=== PATIENT | male | born 1950 | race Caucasian/White ===

== ENCOUNTER 2020-06-21 13:06 | Inpatient (IN) | payer OTHER ==
[~2020-06-21] VITALS: Ht 172.7 cm; Wt 80.3 kg
[2020-06-21 13:08] VITALS: BP 132/79
[2020-06-21] MEDS ORDERED: TIZANIDINE HCL2 M1 PO (13:14)
[2020-06-21] MEDS ORDERED: LYRICA25 MG PO (13:15)
[2020-06-21] MEDS ORDERED: SEROQUEL 100 M100 M1 PO (13:16)
[2020-06-21] MEDS ORDERED: DESYREL150 MG PO (13:17)
[2020-06-21] MEDS ORDERED: CLONAZEPAM 0.50.5 M1 PO (13:25)
[2020-06-21] MEDS ORDERED: LEVO-T100 MCG PO (13:26)
[2020-06-21] MEDS ORDERED: NEURONTIN100 MG PO (13:26)
[2020-06-21] MEDS ORDERED: MELOXICAM7.5 MG PO (13:27)
[2020-06-21] MEDS ORDERED: TRAMADOL 50 MG50 MG PO (13:28)
[2020-06-21 18:09] LABS: URINE BILIRUBIN NEGATIVE (Negative); URINE BLOOD NEGATIVE (Negative); URINE CLARITY CLEAR; URINE COLOR YELLOW; URINE GLUCOSE-RANDOM* NEGATIVE (Negative); URINE KETONES NEGATIVE (Negative); URINE LEUKOCYTES-REFLEX NEGATIVE (Negative); URINE NITRITE-REFLEX NEGATIVE (Negative); URINE PROTEIN (DIPSTICK) NEGATIVE (Negative); URINE SPECIFIC GRAVITY <= 1.005 (1.005-1.035); URINE UROBILINOGEN 0.2 E.U./dl (0.2-1.0)
--- NOTE | 2020-06-21 20:30 | NUR ---
NOTIFIED OF PT'S POSITIVE COVID PCR. PT STATES HE WAS ILL WITH "COLD" SYMPTOMS IN , BUT HAS FELT FINE SINCE. NOTIFIED DR. HANDY WHO IS AGREEABLE TO CONSULTING ON THE PATIENT A MEDICAL ADMIT. Amanda ALVAREZ AGREEABLE WELL.
[2020-06-21] MEDS ORDERED: KLONOPIN1 MG PO (23:07)
[2020-06-21] MEDS ORDERED: CYTOMEL 5MCG TA5 MCG PO (23:08)
[2020-06-21] MEDS ORDERED: AMITRIPTYLINE H50 M3 PO (23:09)
--- NOTE | 2020-06-22 10:50 | NUR ---
69-year-old male with a history of major depressive disorder, anxiety, hypothyroidism, and suicidal ideation who presents to the ED for evaluation before admission to [facility]. The pt comes from [facility] and is accepted here pending a COVID test. Pt is suicidal with intention and a plan to cut his wrist and throat. OF NOTE: Patient admits to taking his hunting knife to bed to [facility] but after taking his medication for insomnia fell asleep. COVID 19 PCR POSITIVE 06-21-20 at 1454 in [facility] ED. Of NOTE per [facility] team prior to admit [facility] did provide a Negative PCR test. The patient has been admitted with: Suicidal Ideation with a plan to cut throat and wrist with a hunting knife, Hx of Major Depressive Disorder and Anxiety, COVID POSITIVE PER PCR (asymptomatic and continued isolation), Hypothyroidism - pending TSH level and Insomnia. As of 06-22-20 the patient is to be admitted to a medical unit under the care of psychiatry under Dr. Giraldo who confirmed this on 06-22-20. Have spoken with dredge operator supervisor; Carmencita after speaking with attending at present in the ED Dr. Recinos who will discharge patient to Dr. Giraldo's service. [facility] Case Management staff to follow for discharge needs.
[2020-06-22 16:22] VITALS: BP 122/76
[2020-06-22] MEDS ORDERED: MELOXICAM15 MG PO (16:27)
[2020-06-22] MEDS ORDERED: AMITRIPTYLINE H50 M2 PO (16:27)
--- NOTE | 2020-06-22 18:33 | NUR ---
patient admit to unit from er at 1730 with sister. will move patient to 349 later. a/o x4 tearful. sister is inside room.
[2020-06-22 19:43] VITALS: BP 133/76
[2020-06-22 21:09] VITALS: BP 140/82
[2020-06-22 22:02] LABS: HEMATOCRIT 48.4 % (42.0-52.0); HEMOGLOBIN 16.8 gm/dL (14.0-18.0); MCHC 34.7 g/dL (28.0-37.0); MCV 95.1 fL (80.0-100.0); RBC 5.09 mil/uL (4.50-6.00); RDW 12.9 % (10.5-14.5)
[2020-06-22 22:07] LABS: CALCIUM 9.9 mg/dL (8.5-10.1); CREATININE 1.3 mg/dL (0.7-1.3); POTASSIUM 3.9 mmol/L (3.5-5.1)
== END 2020-06-22 22:30 | DRG 178 ==
LOC: ER 13:06 → EROBS 21:57 → 3W 06-22 17:22
PROVIDERS: Emergency Medicine; ADMIT Internal Medicine; ATTEND Internal Medicine
DX: U07.1 COVID-19 (principal); R45.851 Suicidal ideations; F33.2 Major depressive disorder, recurrent severe without psychotic features; E03.9 Hypothyroidism, unspecified; F41.9 Anxiety disorder, unspecified; G47.00 Insomnia, unspecified; Z79.899 Other long term (current) drug therapy

== ENCOUNTER 2020-06-21 14:21 | Inpatient (IN) | payer OTHER ==
[~2020-06-21] VITALS: Ht 175.3 cm; Wt 81.2 kg
[~2020-06-21 14:21] MED LIST: CLONAZEPAM 0.50.5 M1 PO; DESYREL150 MG PO; LEVO-T100 MCG PO; LYRICA25 MG PO; MELOXICAM7.5 MG PO; NEURONTIN100 MG PO; SEROQUEL 100 M100 M1 PO; TIZANIDINE HCL2 M1 PO; TRAMADOL 50 MG50 MG PO
[2020-06-21] MEDS ORDERED: KLONOPIN1 MG PO (23:07)
[2020-06-21] MEDS ORDERED: CYTOMEL 5MCG TA5 MCG PO (23:08)
[2020-06-21] MEDS ORDERED: AMITRIPTYLINE H50 M3 PO (23:09)
[2020-06-22] MEDS ORDERED: MELOXICAM15 MG PO (16:27)
[2020-06-22] MEDS ORDERED: AMITRIPTYLINE H50 M2 PO (16:27)
--- NOTE | 2020-06-23 05:12 | NUR ---
Pt admitted to unit from ED on 06/22/20 @ 2140. Report received from MEIR Villar, prior to coming to unit. Pt arrived to unit via w/c with staff. Pt belongs inventoried. Pt assessment completed. Pt vital signs at time of admission to unit was 140/83; 60; 22; 97.8; and 100% on room air. Pt reports he has chronic pain in lower back and that it is nerve pain which results in bilateral pain to his feet at times. Pt is A&O x 4. Pt is pleasant and cooperative. Pt reports to this fiction writer that he called his adopted son who lives with him and has aspergers and other medical conditions to bring him to hospital r/t his current depressive episode. Pt reports this has happened over the years a total of 5 times. Pt then became tearful and was crying stating he can't take care/fix his son's medical needs. Pt also talks about his daughter and states he has one other adopted son. Pt reports to this fiction writer that today he had a BM in which he had blood. Pt reports it might be internal hemmrhoids, he is not sure. Pt requesting for a high fiber diet and states he needs prune juice daily and he likes to eat fresh raw vegetables. Order received with admission orders for high fiber diet. Pt is ambulatory with steady gait. Pt takes medications whole with water. Pt has been resting quietly throughout night once he was settled into room. Pt is on 12 min rounding for safety. Will continue to monitor for any changes in mood/behavior and safety. Pt rating depression and anxiety 7-8/10. Pt denies SI at this time to this fiction writer. Will continue to monoitor.
[2020-06-23 08:47] VITALS: BP 129/70
[2020-06-23 09:37] VITALS: BP 129/70
--- NOTE | 2020-06-23 11:16 | NUR ---
1118 RESUMMED CARE FROM OVERNIGHT SHIFT THIS AM, PATIENT IN ROOM LYING QUIET. PATIENT ATE BREAKFAST AND TOOK MEDICATION WITHOUT INCIDENCE PATIENT ALERT OX4. PATIENT DENIES SI/HI/AH/VH AT PRESENT PATIENT STATES HE HAS DEPRESSION AT A 6 AND NOW ANXIETY. 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 PATIENTS ABDOMEN SOFT ROUND BOWEL SOUNDS PRESENT LUNGS CLEAR. PATIENT INTERACTIVE WITH STAFF PARTICIPATES IN GROUPS. WILL CONTINUE TO MONITOR PATIENT FOR SAFETY AND BEHAVIORS.
--- NOTE | 2020-06-23 13:19 | NUR ---
Nutrition Note: RD received consult for assessment. Pt reporting a decreased appetite, however continues to eat because he knows he needs to. Pt dislikes food at facility and previous facility. States he normally follows a healthy, high fiber diet at home. Pt 155# per reported wt on admit, now up to 179# at present. Ate 100% of breakfast this am, 50% of lunch. Dislikes hospital supplements, calls ensure the liquid. Typically takes multiple herbal supplements at home. 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 Pt remains low nutritional risk at present. RD will remain available.
--- NOTE | 2020-06-23 16:47 | NUR ---
JA was able to complete the assessment with the Pt. Pt reported SI but stated he did not have a plan. Pt stated, "I ask God to take me because I can't get enough courage to do it". Pt stated several times during the assessment that he had a lot of pain in his back and head. Pt reported chronic pain. Pt also reported he did not have a PCP and was not in a pain clinic. Pt reported seeing his psychiatrist, Dr. Prieto, via telemedicine two weeks ago. Pt does not have a therapist at this time. Pt reported increased anxiety during the assessment stating " I can't organize my thoughts, I have a lot of mental confusion". Pt left the interview stating he was feeling overwhelemed. AJ will continue to follow
[2020-06-23 19:44] VITALS: BP 156/88
--- NOTE | 2020-06-24 05:14 | NUR ---
Assumed care of pt @ 1900. Pt calm et cooperative most of shift. Took medications whole without difficulty. Ambulates the halls ad dimitris with steady gait. VSWNL. Health assessment with no abnormalties noted this shift. Denies SI/HI/AVH at present time. Pt came to desk to report that he was having a "panic attack" but pt did not visually demonstrate ay acute emotional distress et was told that he needed to lie down et concentrate on his breathing et calming himself. Pt requested et received PRN Tramadol et Ambien with HS medications. Currently resting in bed with eyes closed. Will continue to monitor per unit protocol.
[2020-06-24 08:59] VITALS: BP 144/84
[2020-06-24 09:27] VITALS: BP 144/84
--- NOTE | 2020-06-24 12:40 | NUR ---
1230 RESUMMED CARE FROM OVERNIGHT SHIFT THIS AM, PATIENT IN ROOM LYING QUIETLY. PATIENT CAME IN DAY ROOM ATE BREAKFAST TOOK MEDICATION WITHOUT INICDENCE. PATIENT IS STILL COMPLAINING ABOUT NOT SLEEPING WELL AND ABOUT HIS ANXIETY. PATIENT SLEPT FOR 7 HOURS LAST NIGHT BUT STATES HE WAS UP PRAYING ALL NOT. PATIENT IS ORIENTED TIMES 4 HE IS COOPERATIVE LIKES TO ISOLATE IN HIS ROOM. I TOLD PATIENT HE NEEDS TO INTERACT MORE WITH STAFF AND COME TO GROUPS. PATIENT DENIES SI/HI/AH/VH AT PRESENT DOES HAVE DEPRESSION AND ANXIETY WHICH HE RATES AT A 9 FOR BOTH. PATIENTS ABDOMEN SOFT ROUND BOWEL SOUNDS PRESENT LUNGS CLEAR. WILL CONTINUE TO MONITOR PATIENT FOR SAFETY AND BEHAVIORS.
[2020-06-24 19:20] VITALS: BP 138/78
--- NOTE | 2020-06-25 04:29 | NUR ---
Assumed care of pt @ 1900. Pt calm et cooperative this shift. Took medications whole without difficulty. Ambulates the halls ad dimitris with steady gait. VSWNL. Health assessment with no abnormalities noted at present time. Denies SI/HI/AVH at present time. 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 Pt verbalized understanding et appeared to calm down. Pt was given PRN Tramadol et Ambien at .Currently resting in bed with eyes closed. Will continue to monitor per unit protocol.
[2020-06-25 08:34] VITALS: BP 98/58
--- NOTE | 2020-06-25 17:40 | NUR ---
Assumed pt care at 0700.Pt was in his room resting. pt was alert and oriented x4. Assessment completed AND VSS. Pt took his medication whole, no difficulties noted. pt was calm and co-operative all through this shift. pt ate all meals. pt denies SI/HI. NO C/O OF pain. Pt participated in group activities.pt is ambulatory with a steady gait, pt constantly walks round the unit.AT 1716 PT WAS GIVEN PRN HYDROXYZINE FOR ANXIETY PER PT REQUEST. Will continue to monitor pt.
--- NOTE | 2020-06-25 18:23 | NUR ---
SW meet with patient to access patient feeling. Patient reported feeling anxious, but unsure why. Patient denied Si/HI. SW explained to patient if interested SW will meet with patient tomorrow.
[2020-06-25 19:21] VITALS: BP 142/84
--- NOTE | 2020-06-26 05:37 | NUR ---
Assumed care of pt @ 1900. Pt calm et cooperative this shift. Took medications whole without difficulty. Ambulates the halls ad dimitris with steady gait. VSWNL. Health assessment with no abnormalities noted this shift. Denies SI/HI/AVH at present time. Pt c/o not receiving his T3 medication as he had requested from the medical hospitalist. Pt states that he is to receive that with his levothyroxine and since he has not been receiving it, he is not able to get adequate sleep at [facility]. Informed pt that it will be noted in his chart et passed on to the day shift. Pt verbalized understanding. Isolated in room most of shift. Currently resting in bed with eyes closed. Will continue to monitor per unit protocol.
[2020-06-26 08:10] VITALS: BP 128/84
[2020-06-26 09:10] VITALS: BP 128/84
--- NOTE | 2020-06-26 10:10 | NUR ---
1000 RESUMMED CARE FROM OVERNIGHT SHIFT THIS AM, PATIENT IN ROOM QUIET. UPON DOING PATIENTS ASSESSMENT PATIENT STARTED TALKING ABOUT HE IS FEELING PAIN; ALSO HE IS FIXATED THAT HE IS NOT GETTING T3 FOR THYROID. PATIENT ASKED ME HOW WOULD I FEEL IF I LOST MY JOB AND COULD NOT FIND ONE AND THAT HIS CAR IS BROKEN. HE STATES THAT IF HE WOULD GO HOME HE MIGHT TRY TO KILL SELF; I TALKED WITH PATIENT ABOUT TAKING THINGS ONE DAY AT A TIME. EVERYONE HAS SOME SORT OF STRESS IN THEIR LIVES AND HE NEEDS TO START TRYING TO THINK MORE POSITIVE. HE DENIES SI/HI/AH/VH AT PRESENT HE IS ALERT AND ORIENTED TIMES 4. PATIENTS ABDOMEN SOFT ROUND BOWEL SOUNDS PRESENT LUNGS CLEAR. PATIENT LIKES TO STAY IN ROOM AND WE HAVE TO GET HIM FOR GROUPS AND MEALS. I EXPLAINED TO PATIENT IF HE DOES NOT STOP WANTING TO JUST STAY IN HIS ROOM THE DOCTOR WILL ORDER ROOM LOCK OUT. PATIENTS AFFECT IS FLAT AND HE STATES DEPRESSION AND AXIETY IS A 8; WILL CONTINUE TO MONITOR PATIENT FOR SAFETY AND BEHAVIORS.
--- NOTE | 2020-06-26 16:42 | NUR ---
SW met with patient. Patient reported he felt bad today versus yesterday. Patient reported he feels like a gun is at his head and he is ready to pull the trigger. Patient reported he doesn't want to hurt anyone else. Patient reported he feels like he is falling apart because of all the aches and pains. SW requested the nurse complete a set of vitals because the patient reported feeling like he was having a panic attack. Patient reported he prays and practices deep breathing but nothing seems to work. SW encouraged patient to continue to do those things. Nurse is also speaking with patient.
[2020-06-26 16:50] VITALS: BP 165/88
--- NOTE | 2020-06-26 16:51 | NUR ---
SPOKE WITH PT AND HE SAID HE WAS SCARED OF HAVING A HEART ATTACK. PT VS TAKEN AND BP 165/88, HE SAID HIS FEELS NAUSEATED AND HAS A HEADACHE. HE SAID HE HAD THIS HAPPEN WHEN HE WAS 40 AND THE TOLD HIM TO REST. PT SAID HIS MUSCLES JUMP WHEN HE LAYS DOWN AND HE DIDN'T KNOW HOW TO CONTROL IT.
--- NOTE | 2020-06-26 18:00 | NUR ---
ADM TYLENOL 325MG 2 TABS PO FOR COMPLAINTS OF HEADACHE.
[2020-06-26 19:34] VITALS: BP 151/89
--- NOTE | 2020-06-27 04:11 | NUR ---
Assumed care of patient this pm shift. Patient calm and cooperative. Alert and oriented x4. Takes medications whole with thin fluids. Ambulates without assistance. Affect blunted/sad. Assessment shows no signs of acute distress. Vital signs stable. We will continue to monitor per hospital policy.
[2020-06-27 09:41] VITALS: BP 125/69
[2020-06-27 10:50] VITALS: BP 125/69
--- NOTE | 2020-06-27 12:50 | NUR ---
1251 RESUMMED CARE FROM OVERNIGHT SHIFT THIS AM, PATIENT IN ROOM RESTING QUIET. PATIENT CAME ATE BREAKFAST TOOK MEDICATION WITHOUT INCIDENCE. PATIENT DENIES SI/HI/AH/VH AT PRESENT PATIENT APOLOGIZED FOR BEING SOMATIC YESTERDAY. PATIENT AFFECT SOMEWHAT BRIGHTER PATIENT IS NOT ISOLATING IN ROOM AND HAS ATTENDED GROUPS. PATIENTS ABDOMEN SOFT ROUND BOWEL SOUNDS PRESENT LUNGS CLEAR. PATIENT DOES TALK WITH OTHERS HE IS ALERT AND ORIENTED TIMES 4 PATIENT STATES HE NEEDS HELP WITH COPING WITH STRESS. WILL CONTINUE TO MONITOR PATIENT FOR SAFETY AND BEHAVIORS.
[2020-06-27 19:58] VITALS: BP 144/91
--- NOTE | 2020-06-28 02:58 | NUR ---
ASSESSMENT: PT REMAIN ALERT AND ORIENT TIMES FOUR. UP AD KAROLINA IN THE ROOM FOR NOW. PT WAS ONCE AGAIN TESTED POSITIVE FOR COVID. Terry NASH WAS NOTIFIED, ORDERS TO TELL PT TO ISOLATE HIMSELF TO HIS ROOM FOR NOW, UNTIL SHE CAN GET THINGS STRAIGHTENED OUT WITH ID. PT WAS THEREFORE NOTIFIED OF SUCH. PT REQUESTED AMBIEN TIMES TWO (ONE HR APART) DURING THIS HS. PT ALSO WAS GIVEN HIS NORITRIPTYLINE ALONG WITH OTHER SCHEDULED MEDS. PT DID NOT STATE THAT HE "DID NOT GET HIS NORITRIPTYLINE", JUST WANTED TO KNOW THE COLOR OF THE TAB. PT ALSO MENTIONED TO ANOTHER RN THAT HE WAS NOT SURE IF HE GOT HIS NORITRIPTYLINE. MEDS WERE GIVEN TO HIM IN THE DAY AREA AND WHEN ASKED WHAT ALL DID HE HAVE HERE, ALL MEDS WERE CALLED OUT TO HIM. LATER AT APPROXIAMATELY 0210 PT RECEIVED A TRAMADOL FOR PAIN. RATING 6/10 ON NUMERIC SCALE. VSS, AFEBRILE. TOLRATED PO INTAKE. PT POSITIVE ON 06/21 AND 06/27 AND NEGATIVE ON 06/22. PER Amanda ALVAREZ FEATHER BALER, PT WAS OK TO REMAIN ON THE UNIT. DENIES SI/HI
--- NOTE | 2020-06-28 06:19 | NUR ---
ASSESSMENT: PT IS VERY FRUSTRATED BECAUSE HE FELT THAT HIS AMBIEN DID NOT WORK WELL IT DID THE NIGHT BEFORE. HE STATE THAT HE WAS ABLE TO GET 4 HRS OF SLEEP -VS- ONLY GETTING 2 HRS OF INTERRUPTED SLEEP LAST NIGHT. PT WAS POLITE IN EXPLAINING HIS CURRENT SITUATION TO THIS RN. WILL PASS ALONG THIS INFORMATION TO ON-COMING RN. PT WAS UPSET ABOUT THE TECH COMING IN TO WAKE HIM UP AT 0530 THIS AM. PT IS ISOLATED TO HIS ROOM PER DR. HANDY R/T POSITIVE RESULT OF COVID. THIS RN SPOKE WITH THE PT AND EXPLAINED THAT THE TECH WAS UNAWARE OF HIS STATUS AND WAS ONLY DOING WHAT SHE WAS TOLD BY THE DETECTIVE PRIVATE EYE (TO BEGAN GETTING PT'S UP FOR BREAKFAST). WILL CONTINUE TO MONITOR.
[2020-06-28 07:30] VITALS: BP 122/75
--- NOTE | 2020-06-28 10:28 | NUR ---
Alert and orientated X4. Denies SI/HI. Calm, cooperative and compliant. Placed in isolation d/t COVID positive test, Dr. Giraldo checking with Dr. Benjamin, believes it is an old positive. Pt. seeking clarification. When explained, pt states nurse dropped Covid swab on floor and then did test. When asked if swab was in package or not before she used it he stated that it was not in package. Frequent questions and suggestions of reading material for staff. Up ambulating with steady gait. Denies SI/HI. Does state he will not do well with isolation, that "you will never be able to discharge me if I have to be isolated." Breath sounds clear. Reg HR auscultated. Color pink with brisk capillary refill and palpable peripheral pulses. Independent with voiding. Active bowel sounds over soft, rounded abdomen. Prune juice and miralax given per request d/t no BM in 3 days. Isolation dced at 0800--Dr. Giraldo texted nurse social media manager results of discussion with Dr. Benjamin. Dr. Chan later called concerned about COVID test, states she will talk with Dr. Benjamin. Shared results of info from Dr. Giraldo and Ale, nurse social media manager. Participating in group offering insights about songs. No s/o distress.
[2020-06-28 19:24] VITALS: BP 121/82
[2020-06-29 02:02] VITALS: BP 121/82
--- NOTE | 2020-06-29 05:54 | NUR ---
Assumed care of pt at 1900. Pt has presented with a flat, depressed affect. Pt has been calm and cooperative. Pt had PRN tramadol for lower back pain rated at 6/10 - PRN effective and at follow up was rating at 2/10. Pt denies SI/HI. Pt is 12 min checks for safety. Will continue to monitor for changes in mood/behavior and safety.
[2020-06-29 07:33] LABS: BASOPHILS 0.6 % (0.0-2.0); HEMATOCRIT 50.9 % (42.0-52.0); HEMOGLOBIN 17.4 gm/dL (14.0-18.0); LYMPHOCYTES 27.5 % (24.0-44.0); MCH 32.7 pg (26.0-34.0); MCHC 34.2 g/dL (28.0-37.0); MCV 95.6 fL (80.0-100.0); PLATELET COUNT 200 thou/uL (150-400); POLYS 58.9 % (36.0-66.0); RBC 5.32 mil/uL (4.50-6.00); RDW 13.2 % (10.5-14.5)
[2020-06-29 07:43] LABS: CALCIUM 9.9 mg/dL (8.5-10.1); CREATININE 1.4 mg/dL (0.7-1.3); POTASSIUM 3.9 mmol/L (3.5-5.1)
[2020-06-29 10:31] VITALS: BP 125/81
--- NOTE | 2020-06-29 19:27 | NUR ---
REPORTED BY LOG RAFTER THAT A PLASTIC KNIFE HAD BEEN FOUND IN ROOM AFTER BREAKFAST-WHEN MD ASKED ABOUT THIS DURING ROUNDS STATES "WELL I EAT IN MY ROOM-THEY USUALLY JUST DUMP EVERYTHING IN THE TRASH" "I DON'T THINK I COULD REALLY HURT MYSELF WITH A PLASTIC KNIFE" DENIES SI/SH BUT DOES STATE FEELS "VERY ANXIOUS" ABOUT DISCHARGE STATING "HE DOESN'T LIKE WHERE HE LIVES-DOESN'T HAVE ENOUGH HELP AT HOME AND IS WORRIED ABOUT GETTING INTO MD TO GET MEDICATIONS FOR CHRONIC BACK PAIN. DOES LISTEN TO FEEDBACK/SUPPORT FROM STAFF BUT STATES "IT HELPS TO TALK ABOUT IT AND I AM FINE DURING THE DAY WHEN I'M BUSY BUT IT GETS REALLY BAD AT NIGHT-MY WORRIES." REQUESTED AND RECEIVED VISTARIL 50MG PO PRN AT 1700 FOR REPORTED ANXIETY RATED A 10 ON 1-10 SCALE. DOES REPORT DECREASE OF ANXIETY TO A 4 OR 5. ULTRAM 50MG GIVEN PO PRN AT 1815 F0OR REPORTED LOW BACK BRANDON RATED A 7 ON 1-10 SCALE.
[2020-06-29 19:36] VITALS: BP 125/83
[2020-06-30 00:06] LABS: GLYCOHEMOGLOBIN (HGB A1C) 5.3 % (4.8-5.6)
--- NOTE | 2020-06-30 02:39 | NUR ---
Assumed care for pt at 1900. Pt up in dining room at start of shift, then spent remainder of evening in room. Pt is calm, cooperative, and pleasant with nursing assessment and medication compliant. Pt is A&Ox4. Pt reports depression improving, but has anxiety. Anxiety is related to d/c and living arrangement, and described his current [place] condition [place]. Pt has chronic lower back pain and does also c/o neuropathic pain bilaterally to feet if he stands too much. Pt reports Tramadol PRN he received for pain prior to this shift starting was effective. At time of assessment rates pain a 08/03. Pt reports LMB being on 06/28/20. Pt presents with flat and sullen affect. Pt had PRN Ambien for sleep per orders. Then at 0037 still unable to sleep and had PRN seroquel, which appears to have been affective. Pt reports appetite being fair to good. Pt is on 12 minute rounding. Will continue monitor for changes in mood/behavior and for safety. Pt denies any current thought of SI/HI or plans.
[2020-06-30 08:00] VITALS: BP 133/85
--- NOTE | 2020-06-30 08:45 | NUR ---
PT FINISHED BREAKFAST AND ATTENDING GROUP. PT TOOK MEDS WHOLE. PT UP AD KAROLINA. PT STATED HE HAS PAIN TO MIDDLE OF BACK L5 AREA, DIDN'T RATE THE PAIN. LIDOCAINE PATCH APPLIED TO THE LOWER BACK. PT STATED HE HAS TROUBLE SLEEPING ASKED IF IT WAS THE BED, PT STATED NO THAT WOULD BE A SIMPLE FIX JUST LAY ON PILLOWS. PT STATED IT WOULD BE BEST TO GET OVER FEARS. ASKED WHAT HIS FEAR WAS ABOUT LIFE OR . HE STATED NO FEAR THERE JUST WOULDN'T WANT HIS DAUGHTER BE WITHOUT HIM. HE SAID YOU BELIEVE IN GOD WILL HAVE EVERLASTING LIFE, SO NO FEAR OF DYING. WILL CONT TO ASSESS HIS FEARS.
[2020-06-30 09:39] VITALS: BP 133/85
--- NOTE | 2020-06-30 11:30 | NUR ---
SAT DOWN WITH PT AND WENT OVER WHAT HE IS WORRIED ABOUT. HAD HIM WRITE DOWN ON PAPER HIS CONCERNS. HE SAID NUMBER ONE IS WHERE IS HE GOING TO LIVE AFTER THIS VISIT, HE IS THINKING OF A CONFUCIANISM FRIENDS OR A JAIL. PT STATED HIS SECOND CONCERN WAS HIS CAR NEEDS TO BE LISCENCED AND NEED TO PAY FOR TAXES ON IT AND GET INSPECTION. THIRD WAS HIS SPINE INJURY AND NEEDING PROB SURGERY TO FUSE VERTEBRAE, FORTH WAS NEUROPATHY TO FEET, FITH WAS WHAT TO DO WITH HIS DAY, NOT SIT INFRONT OF TV. NUMBER 6 IS SLEEP. HE STATED HE ONLY GOT 4 HOURS OF SLEEP LAST NIGHT. HE HAS ISSUES WITH GETTING TO SLEEP. 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
--- NOTE | 2020-06-30 12:24 | NUR ---
Nutrition Note: Pt continues with fair to good appetite, eating 50-100% of most meals. Weight appears stable. No c/o GI distress, last BM 2/. Skin remains intact. Dislikes oral nutrition supplements. Pt remains low nutritional risk at present. RD will remain available.
--- NOTE | 2020-06-30 14:11 | NUR ---
RT Progress Note- Jasiel has been active in both the milieu and recreational therapy groups since his admission. He has also made friendships with a few patients on the unit who he is seen interacting with in the milieu during unscheduled time. He continues to state that he is depressed and is unprepared for the transition out of the hospital. He expresses thankfulness for group and takes notes at times, expressing that the information is overwhelming to take in so quickly. Recreational Therapists will continue to encourage participation.
--- NOTE | 2020-06-30 16:42 | NUR ---
PT WANTING TO KNOW ABOUT GOING HOME TOMMORROW AND HE DIDN'T KNOW HOW THAT WAS POSSIBLE DUE TO HIS LIST EARLIER, PT STATED HE WASN'T READY FOR THAT YET.
--- NOTE | 2020-06-30 17:13 | NUR ---
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 ADM HYDROXYZINE 50MG AND ALSO TRAMADOL 50MG PO FOR PAIN TO BACK OF 7 ON 1-10 SCALE. PT HAS NOT HAD ANY PAIN MEDICATION DURING THIS SHIFT.
--- NOTE | 2020-06-30 17:55 | NUR ---
SW was able to meet with the Pt concerning discharge planning. Pt became upset about being discharged on Saturday. Pt feels he is still in need. Pt stated, " I will when I leave." SW asked Pt if he was suicidal. Pt stated " yes, I will just go home and slit my wrist and neck.". Pt started having what he called and "Anxiety attack", had difficulty answering questions and could not participate in plans for discharge. Pt and SW did a deep breathing to assist with calming. Pt was unable to complete this excersise. Pt stated feeling "overwheled" and "in panic". Pt calmed down enough to call daughter about transportation. Pt was worried about outpt services stating he did not believe [facility] would allow him into [facility] program because he owed them money. SW attempted to work through Pt's worries and concerns. Pt unable to process though his worries at this time. SW will revisit with Pt in the morning. AJ reported this information to Dr. Giraldo
[2020-06-30 19:09] VITALS: BP 158/89
--- NOTE | 2020-07-01 01:07 | NUR ---
Assumed care on 06/30/20 @ 19:15, Alert oriented x4, Lungs CTA HRRR, ABD N x 4Q. Denies pain at this time, will reassess @ HS. Requests medication for insomnia and expresses anxiety and explains the self southing breathing that he practices to overcome anxiety.
[2020-07-01 08:26] VITALS: BP 131/87
[2020-07-01] MEDS ORDERED: AMBIEN 5 MG TABL5 M1 PO (11:41)
[2020-07-01] MEDS ORDERED: VISTARIL50 MG PO (11:41)
[2020-07-01] MEDS ORDERED: LIDOPATCH1 EACH TRANSDERM (11:41)
[2020-07-01] MEDS ORDERED: SEROQUEL 50 MG50 MG PO (11:41)
[2020-07-01] MEDS ORDERED: PAMELOR50 MG PO (11:41)
[2020-07-01] MEDS ORDERED: CYTOMEL50 MCG PO (11:42)
--- NOTE | 2020-07-01 12:23 | NUR ---
AJ talked with Pt about discharge. Pt will stay with his daughter Mari, , in [place] after discharge. Pt has a follow up appt with DR. Prieto 07/19/20 @9:45am (appt is virtual). Pt will need to call [facility], , to schedule and intake appt for the [facility] program on 07/04/20. Pt had a concern about transportation to appointments. AJ educated Pt on [place] medicaid Non emergency transportation and provided with the phone number. AJ also educated Pt on [employer] transportation and provided Pt with information for [employer]. This information was provided to Pt on SW discharge a copy placed in the file.
--- NOTE | 2020-07-01 14:33 | NUR ---
Alert and orientated X 4. Isolating in room this AM very concerned about discharge and not getting enough sleep. Denies SI/HI/pain, hallucinations. Breath sounds clear. Reg HR auscultated. Color pink with brisk capillary refill and palpable peripheral pulses. No edema noted. Independent with voiding. Active bowel sounds over soft, rounded abdomen. States he had BM this AM. Regular steady gait. Conversing with peers in dining room. Participating in groups. Planned discharge for 1600.
[2020-07-01 15:36] VITALS: BP 131/87
[2020-07-02] MEDS ORDERED: SYNTHROID100 MC1 PO (13:33)
--- NOTE | 2020-07-02 13:44 | NUR ---
Pt and daughter called regarding not having a prescription for Levothyroxine and Levothyrinine upon discharge. Pt. states medication was missing from medications he brought to the hospital. Adrianne Archer, bilingual secretary called [employer] [facility] who referred him to his primary care provider. Pt. states his primary care physican has retired and he does not have a PCP. Hospitalist Dr. Chan notified of situation and [facility] by pts daughter: . Dr Chan gave following instructions to call to family: Take Levothyroxine 100 mcg q AM. F/U for TSH in 4 wks with PCP. She did not want pt to restart levothyrinine. She stated she would call Rx for Levothyroxine for 30 days to [facility]. Called pt and daughter back and gave instructions. Both verbalized understanding.
== END 2020-07-01 16:00 | disposition home or self-care (01) | DRG 881 ==
LOC: SBH
PROVIDERS: Internal Medicine; ADMIT Psychiatry & Neurology Psychiatry; ATTEND Psychiatry & Neurology Psychiatry
DX: F32.9 Major depressive disorder, single episode, unspecified (principal); U07.1 COVID-19; R45.851 Suicidal ideations; G89.29 Other chronic pain; M54.9 Dorsalgia, unspecified; G47.00 Insomnia, unspecified; E03.9 Hypothyroidism, unspecified; Z79.899 Other long term (current) drug therapy
CPT/HCPCS: 10880